=== PATIENT | female | born 1985 | race Caucasian/White ===

== ENCOUNTER 2018-10-17 10:10 | Emergency (ER) | payer BC ==
--- NOTE | 2018-10-17 12:05 | UC ---
Lower Extremity/Ankle HPI - HPI Summary HPI Summary: 33y/o female with no PMH, no prior knee, ankle injuries presents after playing broomball an hour ago, had fall on ice, knee when one way, leg the other. + medial knee pain, swelling, no bruising. able to ambulate afterwards, however now increased pain, stiffness as knee becomes more swollen. mild to moderate pain - History of Current Complaint Chief Complaint: UCLowerExtremity Stated Complaint: LEFT KNEE INJURY/PAIN Time Seen by Provider: 10/17/18 11:51 Hx Obtained From: Patient Hx Last Menstrual Period: 09/13/18 ?: No Onset/Duration: Sudden Onset, Lasting Hours Severity Initially: Moderate Severity Currently: Moderate Pain Intensity: 4 Pain Scale Used: 0-10 Numeric Aggravating Factor(s): Standing, Ambulation Alleviating Factor(s): Rest Able to Bear Weight: Yes - Allergies/Home Medications Allergies/Adverse Reactions: Allergies Allergy/AdvReac Type Severity Reaction Status Date / Time No Known Allergies Allergy Verified 10/17/18 10:32 Home Medications: Home Medications Coconut Oil [Coconut Oil Organic] 1,000 mg PO DAILY 10/17/18 [History Confirmed 10/17/18] Ethinyl Estradiol/Drospirenone [Gianvi 3-0.02 mg] 1 tab PO DAILY 10/17/18 [ History Confirmed 10/17/18] Quincy-3 Fatty Acids/Fish Oil [Fish Oil 1,000 mg Capsule] 1 each PO DAILY [History Confirmed 10/17/18] Pediatric Multivitamin No.101 [Gummy] 1 each PO DAILY 10/17/18 [History Confirmed 10/17/18] PMH/Surg Hx/FS Hx/Imm Hx Previously Healthy: Yes - Surgical History Surgical History: Yes Surgery Procedure, Year, and Place: tonsilectomy. wisdom teeth extractions - Social History Alcohol Use: Rare Substance Use Type: None Smoking Status (MU): Never Smoked Tobacco Review of Systems All Other Systems Reviewed And Are Negative: Yes Musculoskeletal: Positive: Arthralgia, Decreased ROM, Edema, Myalgia Is Patient Immunocompromised?: No Physical Exam Triage Information Reviewed: Yes Appearance: Well-Appearing, No Pain Distress, Well-Nourished Vital Signs: Initial Vital Signs Temp 98 F 10/17/18 10:35 Pulse 82 10/17/18 10:35 Resp 15 10/17/18 10:35 BP 120/70 10/17/18 10:35 Pulse Ox 100 10/17/18 10:35 Vital Signs Reviewed: Yes Eyes: Positive: Conjunctiva Clear Musculoskeletal: Positive: ROM Intact - 0-130 with mild at pain endpoint, Strength Limited @ - due to pain, Edema @ - L knee, mild, Other: - ANterior posterior drawer neg, TTP over Medial joint line, none over lateral joint line, mild TTP over MCL, none over LCL, pain with full flexion over medial joint line. + mild patellar laxity, = b/l, neg patellar grind, no apprehension. Neurological: Positive: Alert, Muscle Tone Normal, Other: - SITLT Psychological Exam: Normal Skin Exam: Normal Skin: Positive: Other - no open wounds, sores, no bruising, erythema Lower Extremity Course/Dx - Course Course Of Treatment: x-ray: negative for bony abnormality. crutches (pt has own), RICE, follow up with ortho for possible meniscal tear. - Differential Dx/Diagnosis Differential Diagnosis/HQI/PQRI: Compartment Syndrome, Dislocation, Fracture ( Closed), Fracture (Open), Sprain, Tendonitis Provider Diagnosis: Acute meniscal tear of left knee Discharge - Sign-Out/Discharge Documenting (check all that apply): Patient Departure All imaging exams completed and their final reports reviewed: Yes - Discharge Plan Condition: Good Disposition: HOME Patient Education Materials: Knee Pain (ED), R.I.C.E. Treatment (ED) Referrals: Erik Eisenberg MD [Medical Doctor] - (Follow up within 3-5 days ) Kavita Lyon MD [Primary Care Provider] - Additional Instructions: - Elevate, Ice, use compression (NASH wrap) to prevent swelling - Naproxen 250mg twice daily x 2-3 days to help with pain, swelling - Crutches as needed for ambulation - weight bearing as tolerated - Follow up with orthopedic within 3-5 days for repeat evaluation - Return with decreased senation, numbness of lower leg, increased pain, weakness, or cool toes/ foot - Billing Disposition and Condition Condition: GOOD Disposition: Home
[2018-10-17 12:50] VITALS: BP 113/68
== END 2018-10-17 12:50 | disposition home or self-care (01) ==
LOC: UCCORT 10:10
DX: S83.207A Unspecified tear of unspecified meniscus, current injury, left knee, initial encounter (principal); W00.0XXA Fall on same level due to ice and snow, initial encounter; Y92.9 Unspecified place or not applicable
CPT/HCPCS: 99202; G0463